=== PATIENT | male | born 1935 | race Two or more races ===

== ENCOUNTER 2020-01-04 05:40 | Day surgery (SDC) | payer OTHER ==
[~2020-01-04 05:40] MED LIST: GLIMEPIRIDE2 M1 PO; LASIX40 MG PO; LOSARTAN POTASS25 MG PO; ROSUVASTATIN CAL5 MG PO
== END 2020-01-04 12:00 | disposition home or self-care (01) ==
LOC: CIR.AMB 05:40
PROVIDERS: ATTEND Surgery Surgery of the Hand
DX: M66.341 Spontaneous rupture of flexor tendons, right hand (principal)